=== PATIENT | female | born 1955 | race Caucasian/White ===

== ENCOUNTER 2017-04-07 21:50 | Emergency (ER) | payer MEDICARE, MEDICAID ==
[~2017-04-07] VITALS: Ht 162.6 cm; Wt 81.6 kg
[~2017-04-07 21:50] MED LIST: COUGH MED OTC; IBUP-784 PO
--- NOTE | 2017-04-07 22:02 | NUR ---
PT AMBULATED WITH STEADY GAIT TO RESTROOM TO GIVE URINE SPECIMEN. 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
--- NOTE | 2017-04-07 22:05 | NUR ---
PT BIB SELF FROM HOME, PT C/O ABD PAIN WITH DIARRHEA X 1 DAY. PT IS AAOX4. PT STATES TO HAVING 4 EPISODES OF DIARRHEA SINCE 1399. PT STATES TO FEELING BLOATED AND HAVING GENERALIZED ABD PAIN 3/10 SINCE 1399. PT DENIES N/V. RESP EVEN AND UNLBAORED. ORAL MUCOSA MOIST AND PT DENIES FEELING DEHYDRATED. SKIN PINK AND WARM. NO S/S OF ACUTE DISTRESS NOTED. PT PLACED ON MONITOR AND POX. AWAITING MD FOR EVAL.
--- NOTE | 2017-04-07 22:08 | NUR ---
BEDSIDE WITH PT.
[2017-04-07 22:23] LABS: APPEARANCE,URINE CLEAR (CLEAR); BILIRUBIN,URINE NEGATIVE (NEGATIVE); BLOOD, URINE TRACE-INTA Ery/uL (NEGATIVE); KETONES,URINE NEGATIVE (NEGATIVE); LEUKOCYTE ESTERASE ,URINE NEGATIVE (NEGATIVE); NITRITE, URINE NEGATIVE (NEGATIVE); PROTEIN,URINE NEGATIVE (NEGATIVE); UGLUCOSE NEGATIVE (NEGATIVE); UROBILINOGEN,URINE 0.2 EU/dL (0.2)
[2017-04-07] MEDS ORDERED: ONDANSETRON HCL/PF 4 MG/2 ML VIAL ONE (22:24)
[2017-04-07 22:29] LABS: COLOR,URINE STRAW (YELLOW)
[2017-04-07] MEDS ORDERED: IV NS 0.9% 1,000 ML BAG IV ONE (22:30)
[2017-04-07] MEDS ORDERED: MORPHINE SULFATE INJ 2 MG/ML DISP.SYRIN IV ONE (22:30)
[2017-04-07] MEDS ORDERED: ONDANSETRON HCL/PF 4 MG/2 ML VIAL IVP ONE (22:30)
[2017-04-07] MEDS ORDERED: MORPHINE SULFATE INJ 4 MG/ML DISP.SYRIN ONE (22:40)
[2017-04-07 22:43] LABS: BACTERIA,URINE None seen /HPF (None Seen); RBC,URINE 0-2 /HPF (0-2); SQUAMOUS EPITHELIAL CELL,UR Few /HPF (None Seen); WBC,URINE 0-2 /HPF (0-3)
[2017-04-07 22:43] LABS: BASOPHILS % (AUTO) 0.5 % (0.0-2.0); EOSINOPHILS # (AUTO) 0.1 /CMM (0.0-0.7); EOSINOPHILS % (AUTO) 1.3 % (0.0-6.0); HEMATOCRIT 36 % (33-45); HEMOGLOBIN 11.9 g/dL (11.5-14.8); LYMPHOCYTES # (AUTO) 1.2 /CMM (0.8-4.8); LYMPHOCYTES % (AUTO) 15.9 % (20.0-44.0); MEAN CORPUSCULAR HEMOGLOBIN 27 PG (26.0-33.0); MEAN CORPUSCULAR HGB CONC 34 g/dl (31.0-36.0); MEAN CORPUSCULAR VOLUME 79 fL (82-100); MONOCYTES # (AUTO) 0.9 /CMM (0.1-1.30); MONOCYTES % (AUTO) 11.5 % (2.0-12.0); NEUTROPHILS # (AUTO) 5.4 /CMM (1.8-8.9); NEUTROPHILS % (AUTO) 70.8 % (43.0-81.0); PLATELET COUNT (AUTO) 288 /CMM (150-450); RDW COEFFICIENT OF VARIATION 15.6 (11.5-15.0); RED BLOOD CELL COUNT(AUTO) 4.49 MIL/uL (4.0-5.2); WHITE BLOOD COUNT (AUTO) 7.7 K/uL (4.3-11.0)
--- NOTE | 2017-04-07 22:45 | NUR ---
BEDSIDE WITH PT.
--- NOTE | 2017-04-07 22:47 | NUR ---
PT TO CT.
[2017-04-07 22:52] LABS: CALCIUM, SERUM 8.8 mg/dL (8.5-10.1); CREATININE 0.6 mg/dL (0.6-1.3); POTASSIUM 3.7 mmol/L (3.5-5.1)
[2017-04-07 22:57] LABS: ALBUMIN 3.2 g/dL (3.4-5.0); BILIRUBIN,DIRECT 0.1 mg/dL (0.0-0.2); BILIRUBIN,TOTAL 0.4 mg/dL (0.2-1.0); TOTAL PROTEIN, SERUM 7.6 g/dL (6.4-8.2)
--- NOTE | 2017-04-07 23:04 | NUR ---
pt back from ct.
[2017-04-07 23:39] VITALS: BP 136/77
--- NOTE | 2017-04-07 23:39 | NUR ---
Patient is resting comfortably in bed with eyes closed. Easily aroused. VSS. PT SAFETY AND COMFORT MEASURES IN PLACE.
--- NOTE | 2017-04-07 23:55 | NUR ---
Patient discharged to home in stable condition. Written and verbal after care instructions given. Patient verbalizes understanding of instruction.IV removed. Catheter intact and site benign. Pressure and 4x4 applied to site. No bleeding noted. VSS upon discharge. Pt ambulated with steady gait out of ER. Pt instructed not to drive.
== END 2017-04-07 23:56 | disposition home or self-care (01) ==
LOC: ER 21:52
DX: R10.32 Left lower quadrant pain (principal); M19.90 Unspecified osteoarthritis, unspecified site; Z88.1 Allergy status to other antibiotic agents
CPT/HCPCS: 36415; 74176; 80048; 80076; 81001; 83690; 85025; 96361; 96374; 96375; 99285; A4606; J2270; J2405; J7030; 81000-TC; Z7610

== ENCOUNTER 2018-08-14 19:23 | Emergency (ER) | payer MEDICARE, OTHER ==
[~2018-08-14] VITALS: Ht 162.6 cm; Wt 85.3 kg
[2018-08-14 19:55] VITALS: BP 145/83
--- NOTE | 2018-08-14 19:55 | NUR ---
BIB SELF FROM HOME. AMBULATORY. AAOX4. TO ER BED 9. NAD NOTED, BREATHING EVEN AND UNLABORED. C/O LOWER RIGHT BACK PAIN. PT REPORTS PAIN IS INTERMITENET AND HARD TO DESCRIBE BUT REPORTS VERY UNCOMFORTABLE. PAIN STARTED YESTERDAY AND WORST TODAY. MD AT BEDSIDE. AWAITING ORDERS
[2018-08-14] MEDS ORDERED: ONDANSETRON HCL/PF 4 MG/2 ML VIAL ONE (20:15)
[2018-08-14] MEDS ORDERED: MORPHINE SULFATE INJ 4 MG/ML DISP.SYRIN ONE (20:15)
[2018-08-14 20:20] LABS: APPEARANCE,URINE Clear (CLEAR); BILIRUBIN,URINE Negative (NEGATIVE); BLOOD, URINE Trace-lysed Ery/uL (NEGATIVE); COLOR,URINE Yellow (YELLOW); KETONES,URINE Negative (NEGATIVE); LEUKOCYTE ESTERASE ,URINE Small (NEGATIVE); NITRITE, URINE Negative (NEGATIVE); PROTEIN,URINE Negative (NEGATIVE); UGLUCOSE Negative (NEGATIVE); UROBILINOGEN,URINE 0.2 EU/dL (0.2)
[2018-08-14 20:23] LABS: BASOPHILS # (AUTO) 0.1 /CMM (0.0-0.2); BASOPHILS % (AUTO) 0.8 % (0.0-2.0); EOSINOPHILS % (AUTO) 3.1 % (0.0-6.0); HEMATOCRIT 38 % (33-45); HEMOGLOBIN 12.5 g/dL (11.5-14.8); LYMPHOCYTES # (AUTO) 2.9 /CMM (0.8-4.8); LYMPHOCYTES % (AUTO) 27.1 % (20.0-44.0); MEAN CORPUSCULAR HGB CONC 33 g/dl (31.0-36.0); MEAN CORPUSCULAR VOLUME 80 fL (82-100); MONOCYTES # (AUTO) 0.8 /CMM (0.1-1.30); MONOCYTES % (AUTO) 7.7 % (2.0-12.0); NEUTROPHILS # (AUTO) 6.6 /CMM (1.8-8.9); NEUTROPHILS % (AUTO) 61.3 % (43.0-81.0); PLATELET COUNT (AUTO) 358 /CMM (150-450); RED BLOOD CELL COUNT(AUTO) 4.75 MIL/uL (4.0-5.2); WHITE BLOOD COUNT (AUTO) 10.8 K/uL (4.3-11.0)
--- NOTE | 2018-08-14 20:25 | NUR ---
iv obtained on r ac 20g. blood drawn and given to tech at bedside
[2018-08-14] MEDS ORDERED: IV NS 0.9% 1,000 ML BAG IV ONE (20:30)
[2018-08-14] MEDS ORDERED: MORPHINE SULFATE INJ 2 MG/ML DISP.SYRIN IV ONE (20:30)
[2018-08-14] MEDS ORDERED: ONDANSETRON HCL/PF 4 MG/2 ML VIAL IVP ONE (20:30)
[2018-08-14 20:32] LABS: BACTERIA,URINE 1+ /HPF (None Seen); SQUAMOUS EPITHELIAL CELL,UR Few /HPF (None Seen)
[2018-08-14 20:34] LABS: CALCIUM, SERUM 8.9 mg/dL (8.5-10.1); CREATININE 0.6 mg/dL (0.6-1.3); POTASSIUM 3.7 mmol/L (3.5-5.1)
[2018-08-14 20:39] LABS: ALBUMIN 3.4 g/dL (3.4-5.0); BILIRUBIN,TOTAL 0.2 mg/dL (0.2-1.0); TOTAL PROTEIN, SERUM 7.6 g/dL (6.4-8.2)
--- NOTE | 2018-08-14 21:27 | NUR ---
IPatient discharged to home in stable condition. Written and verbal after care instructions given. Patient verbalizes understanding of instruction.IV removed. Catheter intact and site benign. Pressure and 4x4 applied to site. No bleeding noted. Pt ambulatory with a steady gait
== END 2018-08-14 21:28 | disposition home or self-care (01) ==
LOC: ER 19:23
DX: N39.0 Urinary tract infection, site not specified (principal); M19.90 Unspecified osteoarthritis, unspecified site; Z88.1 Allergy status to other antibiotic agents
CPT/HCPCS: 36415; 80048; 80076; 81001; 83690; 85025; 87086; 96374; 96375; 99283; J2270; J2405; J7030; 81000-TC

== ENCOUNTER 2019-07-22 10:12 | Emergency (ER) | payer MEDICARE, OTHER ==
[~2019-07-22] VITALS: Ht 172.7 cm; Wt 81.6 kg
--- NOTE | 2019-07-22 10:25 | NUR ---
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 PATIENT A/OX4, BREATHING EVEN AND UNLABORED, NO SOB NOTED. CHANGED INTO GOWN, ATTACHED TO THE CREATIVE DESIGNER.
--- NOTE | 2019-07-22 10:45 | NUR ---
IV LINE ESTABLISHED ON RIGHT ACG20, BLOOD DRAWN AND SENT TO LAB.
[2019-07-22 10:49] LABS: BASOPHILS # (AUTO) 0.1 /CMM (0.0-0.2); BASOPHILS % (AUTO) 0.8 % (0.0-2.0); EOSINOPHILS % (AUTO) 3.1 % (0.0-6.0); HEMATOCRIT 40 % (33-45); HEMOGLOBIN 12.9 g/dL (11.5-14.8); LYMPHOCYTES # (AUTO) 2.2 /CMM (0.8-4.8); LYMPHOCYTES % (AUTO) 25.6 % (20.0-44.0); MEAN CORPUSCULAR HGB CONC 32 g/dl (31.0-36.0); MEAN CORPUSCULAR VOLUME 80 fL (82-100); MONOCYTES # (AUTO) 0.6 /CMM (0.1-1.30); MONOCYTES % (AUTO) 6.7 % (2.0-12.0); NEUTROPHILS # (AUTO) 5.6 /CMM (1.8-8.9); NEUTROPHILS % (AUTO) 63.8 % (43.0-81.0); PLATELET COUNT (AUTO) 354 /CMM (150-450); RED BLOOD CELL COUNT(AUTO) 4.97 MIL/uL (4.0-5.2); WHITE BLOOD COUNT (AUTO) 8.7 K/uL (4.3-11.0)
[2019-07-22 10:56] LABS: CARBON DIOXIDE 28 mmol/L (21-32); CHLORIDE 104 mmol/L (98-107); CREATININE 0.7 mg/dL (0.6-1.3); GLUCOSE 103 mg/dL (74-106); POTASSIUM 3.8 mmol/L (3.5-5.1); SODIUM SERUM 138 mmol/L (136-145); UREA NITROGEN, BLOOD 8 mg/dL (7-18)
[2019-07-22 11:07] LABS: ALANINE AMINOTRANSFERASE 22 U/L (12-78); ALBUMIN 3.5 g/dL (3.4-5.0); ALKALINE PHOSPHATASE 148 U/L (46-116); ASPARTATE AMINOTRANSFERASE 17 U/L (15-37); BILIRUBIN,DIRECT 0.1 mg/dL (0.0-0.2); BILIRUBIN,TOTAL 0.2 mg/dL (0.2-1.0); TOTAL PROTEIN, SERUM 7.6 g/dL (6.4-8.2)
--- NOTE | 2019-07-22 12:13 | NUR ---
PATIENT A/OX4, BREATHING EVEN AND UNLABORED, NO SOB NOTED. IV removed. Catheter intact and site benign. Pressure and 4x4 applied to site. No bleeding noted.Patient discharged to home in stable condition. Written and verbal after care instructions given. Patient verbalizes understanding of instruction.
[2019-07-22 12:14] VITALS: BP 116/66
== END 2019-07-22 12:15 | disposition home or self-care (01) ==
LOC: ER 10:15
DX: R07.89 Other chest pain (principal); M19.90 Unspecified osteoarthritis, unspecified site; Z88.1 Allergy status to other antibiotic agents
CPT/HCPCS: 36415; 71045-TC; 80048-TC; 80076-TC; 83690-TC; 84484-TC; 85025-TC

== ENCOUNTER 2020-06-17 17:37 | Emergency (ER) | payer MEDICARE, OTHER ==
[~2020-06-17] VITALS: Ht 160 cm; Wt 83.9 kg
--- NOTE | 2020-06-17 17:45 | NUR ---
LEFT ARM PAIN SINCE LAST NIGHT,DENIES ANY TRAUMA. PATIENT A/OX4, BREATHING EVEN AND UNLABORED, NO SOB NOTED.
[2020-06-17] MEDS ORDERED: ONDANSETRON 4 MG TAB.RAPDIS ONE (18:07)
[2020-06-17] MEDS ORDERED: HYDROCODONE/APAP 5/325MG TABLET ONE (18:07)
[2020-06-17] MEDS ORDERED: HYDROCODONE/APAP 5/325MG TABLET PO ONE (18:30)
[2020-06-17] MEDS ORDERED: ONDANSETRON 4 MG TAB.RAPDIS SL ONE (18:30)
[2020-06-17] MEDS ORDERED: DICL50TA7 PO (19:18)
--- NOTE | 2020-06-17 19:32 | NUR ---
pt is medically stable for D/C per md. Patient discharged to home in stable condition. Rx and Written and verbal after care instructions given. Patient verbalizes understanding of instruction.
[2020-06-17 19:34] VITALS: BP 127/77
== END 2020-06-17 19:35 | disposition home or self-care (01) ==
LOC: ER 17:37
DX: M75.32 Calcific tendinitis of left shoulder (principal); K21.9 Gastro-esophageal reflux disease without esophagitis; Z88.1 Allergy status to other antibiotic agents; Z79.899 Other long term (current) drug therapy
CPT/HCPCS: 73030; 93005; 99283; Q0162